=== PATIENT | female | born 1985 | race Caucasian/White ===

== ENCOUNTER 2016-09-08 09:33 | Emergency (ER) | payer MEDICARE ==
[~2016-09-08] VITALS: Ht 175.3 cm; Wt 125.0 kg
[~2016-09-08 09:33] MED LIST: DAILY MULTIPLE1 EACH PO; ENDOCET 5-3251 EACH PO; FLONASE16 G1 BOTH NARES; IBUPROFEN800 MG PO; MOTRIN800 MG PO; PRENATAL VITAM1 EAC6 PO
[2016-09-08] MEDS ORDERED: NORCO 5/3251 TABLET PO (10:34)
[2016-09-08] MEDS ORDERED: FLEXERIL5 MG PO (10:34)
[2016-09-08 10:50] VITALS: BP 136/110
== END 2016-09-08 10:51 | disposition home or self-care (01) ==
LOC: EME 09:33
DX: M54.5 Low back pain (principal); R30.0 Dysuria; M25.551 Pain in right hip; M79.604 Pain in right leg
CPT/HCPCS: 99281; 99283; J1100